=== PATIENT | female | born 1975 | race Caucasian/White ===

== ENCOUNTER 2017-05-24 15:11 | Inpatient (IN) | payer MEDICAID ==
[~2017-05-24] VITALS: Ht 177.8 cm; Wt 62.6 kg
[2017-05-24 15:18] VITALS: BP_SYST 134
[2017-05-24] MEDS ORDERED: ACETAMINOPHEN 325 MG TABLET PO PRN (15:45)
[2017-05-24] MEDS: NACL 0.9% 1,000 ML IV SCH (16:25)
[2017-05-24] MEDS: HYDROmorphone 1 MG INJ. 1 MG/ML AMPUL IVP PRN ×2 (18:39→23:16)
[2017-05-24 20:20] VITALS: BP_SYST 139
[2017-05-24] MEDS: VANCOMYCIN HCL 1,500 MG in NS 250 ML IV SCH (20:40)
[2017-05-24 21:36] VITALS: BP_SYST 134
[2017-05-24] MEDS: PIPERACILLIN/TAZO 3.375/DEX-IS 50 ML IV SCH (23:08)
[2017-05-24 23:31] VITALS: BP_SYST 144
[2017-05-25 03:31] VITALS: BP_SYST 151
[2017-05-25] MEDS: NACL 0.9% 1,000 ML IV SCH ×2 (04:21→17:41)
[2017-05-25] MEDS: HYDROmorphone 1 MG INJ. 1 MG/ML AMPUL IVP PRN ×4 (04:21→21:22)
[2017-05-25] MEDS: ONDANSETRON HCL 4 MG/2 ML VIAL IVP PRN ×2 (05:21→21:52)
[2017-05-25] MEDS: PIPERACILLIN/TAZO 3.375/DEX-IS 50 ML IV SCH ×2 (05:22→13:18)
[2017-05-25 06:31] LABS: BASOPHILS % (AUTO) 0.2 % (0.0-2.0); EOSINOPHILS # (AUTO) 0.2 K/uL (0.0-0.4); HEMATOCRIT 29.7 % (36-48); LYMPHOCYTES # (AUTO) 1.7 K/uL (1.0-5.5); LYMPHOCYTES % (AUTO) 15.3 % (20.5-51.5); MEAN CORPUSCULAR HEMOGLOBIN 30 pg (27-31); MEAN CORPUSCULAR HGB CONC 34 % (32-36); MEAN CORPUSCULAR VOLUME 89 fL (79.0-98.0); MONOCYTES # (AUTO) 0.5 K/uL (0.0-1.0); NEUTROPHILS # (AUTO) 8.6 K/uL (1.8-7.7); NEUTROPHILS % (AUTO) 77.5 % (40.0-70.0); PLATELET COUNT (AUTO) 402 K/uL (130-430); RED BLOOD CELL COUNT(AUTO) 3.32 MIL/uL (4.2-6.2); RED CELL DISTRIBUTION WIDTH 12.2 % (9.0-15.0)
[2017-05-25 07:06] LABS: ALBUMIN 2.3 g/dL (3.4-4.8); CREATININE 0.7 mg/dL (0.55-1.30); TOTAL BILIRUBIN 0.7 mg/dL (0.0-1.0)
[2017-05-25 08:00] VITALS: BP_SYST 132
[2017-05-25] MEDS: LACTOBACILLUS RHAMNOSUS GG 1 CAP CAPSULE PO SCH (09:16)
[2017-05-25] MEDS: VANCOMYCIN HCL 1,500 MG in NS 250 ML IV SCH ×2 (10:47→21:23)
[2017-05-25] MEDS ORDERED: POTASSIUM CHLORIDE 40 MEQ in NS 250 ML IV ONE (12:00)
[2017-05-25 12:23] VITALS: BP_SYST 136
[2017-05-25 12:27] LABS: POTASSIUM 2.7 mmol/L (3.5-5.1)
[2017-05-25 17:30] VITALS: BP_SYST 142
[2017-05-25 20:00] VITALS: BP_SYST 139
[2017-05-26 00:08] VITALS: BP_SYST 143
[2017-05-26] MEDS: PIPERACILLIN/TAZO 3.375/DEX-IS 50 ML IV SCH ×3 (00:26→14:26)
[2017-05-26] MEDS: HYDROmorphone 1 MG INJ. 1 MG/ML AMPUL IVP PRN ×3 (01:49→12:17)
[2017-05-26] MEDS: NACL 0.9% 1,000 ML IV SCH (04:37)
[2017-05-26 04:48] VITALS: BP_SYST 130
[2017-05-26 06:28] LABS: BASOPHILS % (AUTO) 0.4 % (0.0-2.0); EOSINOPHILS # (AUTO) 0.2 K/uL (0.0-0.4); EOSINOPHILS % (AUTO) 1.5 % (0.0-4.0); HEMATOCRIT 27.1 % (36-48); HEMOGLOBIN 9.2 g/dL (12.0-16.0); LYMPHOCYTES # (AUTO) 1.8 K/uL (1.0-5.5); LYMPHOCYTES % (AUTO) 15.7 % (20.5-51.5); MEAN CORPUSCULAR HEMOGLOBIN 31 pg (27-31); MEAN CORPUSCULAR HGB CONC 34 % (32-36); MONOCYTES # (AUTO) 0.5 K/uL (0.0-1.0); MONOCYTES % (AUTO) 4.3 % (1.7-9.3); NEUTROPHILS % (AUTO) 78.1 % (40.0-70.0); PLATELET COUNT (AUTO) 364 K/uL (130-430); RED BLOOD CELL COUNT(AUTO) 2.99 MIL/uL (4.2-6.2); RED CELL DISTRIBUTION WIDTH 12.4 % (9.0-15.0); WHITE BLOOD COUNT (AUTO) 11.5 K/uL (4.8-10.8)
[2017-05-26 06:39] LABS: ALBUMIN 2.3 g/dL (3.4-4.8); CALCIUM 8.7 mg/dL (8.4-11.0); CREATININE 0.96 mg/dL (0.55-1.30); POTASSIUM 3.2 mmol/L (3.5-5.1); TOTAL BILIRUBIN 0.6 mg/dL (0.0-1.0)
[2017-05-26 07:08] LABS: MEAN CORPUSCULAR VOLUME 91 fL (79.0-98.0)
[2017-05-26 08:35] VITALS: BP_SYST 139
[2017-05-26] MEDS ORDERED: POTASSIUM CHLORIDE 20 MEQ TAB.PRT.SR PO SCH (09:00)
[2017-05-26] MEDS ORDERED: SULF1TAB48 PO (09:32)
[2017-05-26] MEDS ORDERED: DOXY100T2 PO (09:32)
[2017-05-26] MEDS ORDERED: TRAM50TA92 PO (09:33)
[2017-05-26] MEDS: LACTOBACILLUS RHAMNOSUS GG 1 CAP CAPSULE PO SCH (09:45)
[2017-05-26] MEDS: VANCOMYCIN HCL 1,500 MG in NS 250 ML IV SCH (10:33)
[2017-05-26 11:34] VITALS: BP_SYST 127
[2017-05-26 13:59] VITALS: BP_SYST 127
== END 2017-05-26 14:58 | disposition home or self-care (01) | DRG 254 ==
LOC: SMU 15:11
PROVIDERS: ADMIT General Practice; ATTEND General Practice
DX: R19.00 Intra-abdominal and pelvic swelling, mass and lump, unspecified site (principal); N39.0 Urinary tract infection, site not specified; Z90.49 Acquired absence of other specified parts of digestive tract; Z90.710 Acquired absence of both cervix and uterus
CPT/HCPCS: 36415; 80053; 85025; 87081; J1170; J2405; J2543; J3370; J3480; J7030; J7050; J7060